=== PATIENT | male | born 1990 | race Caucasian/White ===

== ENCOUNTER 2024-02-16 09:11 | Inpatient (IN) | payer MEDICAID ==
[~2024-02-16] VITALS: Ht 175.3 cm; Wt 85.7 kg
[2024-02-16] MEDS: CEFTRIAXONE 1 G in IV D5W 50 ML IV ONE (09:35)
[2024-02-16] MEDS: IV NS 0.9% 1,000 ML BAG IV ONE (09:46)
[2024-02-16 09:47] LABS: BASOPHILS % (AUTO) 0.5 % (0.0-2.0); EOSINOPHILS # (AUTO) 0.3 K/uL (0.0-0.7); EOSINOPHILS % (AUTO) 3.1 % (0.0-6.0); HEMATOCRIT 39 % (39-51); HEMOGLOBIN 12.5 g/dL (13.5-17.5); LYMPHOCYTES # (AUTO) 1.6 K/uL (0.8-4.8); LYMPHOCYTES % (AUTO) 19.5 % (20.0-44.0); MEAN CORPUSCULAR HEMOGLOBIN 28 PG (26.0-33.0); MEAN CORPUSCULAR HGB CONC 33 g/dl (31.0-36.0); MEAN CORPUSCULAR VOLUME 86 fL (80-96); MONOCYTES # (AUTO) 0.8 K/uL (0.1-1.30); MONOCYTES % (AUTO) 9.4 % (2.0-12.0); NEUTROPHILS # (AUTO) 5.5 K/uL (1.8-8.9); NEUTROPHILS % (AUTO) 67.5 % (43.0-81.0); PLATELET COUNT (AUTO) 352 K/uL (150-450); RED BLOOD CELL COUNT(AUTO) 4.49 MIL/uL (4.5-6.0); RED CELL DISTRIBUTION WIDTH 14.3 % (11.5-15.0); WHITE BLOOD COUNT (AUTO) 8.2 K/uL (4.3-11.0)
[2024-02-16 09:59] LABS: INR 0.98 (0.91-1.10); PARTIAL THROMBOPLASTIN TIME 28.8 SEC (24.3-34.3); PROTHROMBIN TIME 10.4 SECS (9.2-11.1)
[2024-02-16 10:05] LABS: CALCIUM, SERUM 9.3 mg/dL (8.5-10.1); CARBON DIOXIDE 31 mmol/L (21-32); CHLORIDE 101 mmol/L (98-107); CREATININE 0.9 mg/dL (0.6-1.3); GLUCOSE 76 mg/dL (74-106); POTASSIUM 3.4 mmol/L (3.5-5.1); SODIUM SERUM 140 mmol/L (136-145); UREA NITROGEN, BLOOD 9 mg/dL (7-18)
[2024-02-16 10:10] LABS: LACTIC ACID 2.2 mmol/L (0.4-2.0)
[2024-02-16 10:13] LABS: NT-PRO BNP 16 pg/mL (0-125)
[2024-02-16 10:15] LABS: ALCOHOL, BLOOD < 3 mg/dL (0-10)
[2024-02-16 10:17] LABS: C-REACTIVE PROTEIN 2.05 mg/dL (0.0-0.30)
[2024-02-16 10:18] LABS: ALANINE AMINOTRANSFERASE 23 U/L (12-78); ALBUMIN 3.4 g/dL (3.4-5.0); ALKALINE PHOSPHATASE 92 U/L (46-116); ASPARTATE AMINOTRANSFERASE 16 U/L (15-37); BILIRUBIN,DIRECT 0.1 mg/dL (0.0-0.2); BILIRUBIN,TOTAL 0.6 mg/dL (0.2-1.0); TOTAL PROTEIN, SERUM 8.3 g/dL (6.4-8.2)
[2024-02-16] MEDS: VANCOMYCIN 1 GM in IV D5W 250 ML IV ONE (10:20)
[2024-02-16] MEDS ORDERED: ONDANSETRON HCL/PF 4 MG/2 ML VIAL IVP PRN (11:00)
[2024-02-16] MEDS ORDERED: MAG HYDROX/AL HYDROX/SIMETH 30 ML UDC PO PRN (11:00)
[2024-02-16] MEDS ORDERED: TEMAZEPAM 15 MG CAPSULE PO PRN (11:00)
[2024-02-16] MEDS ORDERED: Z GUARD REMEDY 4 OZ OINT TP PRN (11:00)
[2024-02-16] MEDS ORDERED: MAGNESIUM HYDROXIDE 30 ML UDC PO PRN (11:00)
[2024-02-16 12:00] VITALS: BP 122/72; TEMP 98.1; O2SAT 99
[2024-02-16 13:00] VITALS: BP 122/72; TEMP 98.1
[2024-02-16] MEDS: ENOXAPARIN SODIUM 40 MG/0.4 ML DISP.SYRIN SQ SCH (13:37)
[2024-02-16] MEDS: VANCOMYCIN 1 GM in IV D5W 250ml IV SCH (17:32)
[2024-02-16] MEDS: IV NS 0.9% 1,000 ML IV PRN (17:36)
[2024-02-16 18:00] VITALS: BP 121/77; TEMP 98.1; O2SAT 100
[2024-02-16 21:00] VITALS: BP 119/72; TEMP 98.2; O2SAT 100
[2024-02-17 05:00] VITALS: BP 119/72; TEMP 98.2; O2SAT 100
[2024-02-17 07:22] LABS: BASOPHILS % (AUTO) 0.7 % (0.0-2.0); EOSINOPHILS # (AUTO) 0.2 K/uL (0.0-0.7); EOSINOPHILS % (AUTO) 3.6 % (0.0-6.0); HEMATOCRIT 39 % (39-51); HEMOGLOBIN 12.3 g/dL (13.5-17.5); LYMPHOCYTES # (AUTO) 1.7 K/uL (0.8-4.8); LYMPHOCYTES % (AUTO) 27.7 % (20.0-44.0); MEAN CORPUSCULAR HEMOGLOBIN 28 PG (26.0-33.0); MEAN CORPUSCULAR HGB CONC 32 g/dl (31.0-36.0); MEAN CORPUSCULAR VOLUME 86 fL (80-96); MONOCYTES # (AUTO) 0.5 K/uL (0.1-1.30); MONOCYTES % (AUTO) 7.8 % (2.0-12.0); NEUTROPHILS # (AUTO) 3.7 K/uL (1.8-8.9); NEUTROPHILS % (AUTO) 60.2 % (43.0-81.0); PLATELET COUNT (AUTO) 267 K/uL (150-450); RED BLOOD CELL COUNT(AUTO) 4.48 MIL/uL (4.5-6.0); RED CELL DISTRIBUTION WIDTH 14.1 % (11.5-15.0); WHITE BLOOD COUNT (AUTO) 6.1 K/uL (4.3-11.0)
[2024-02-17] MEDS: PANTOPRAZOLE 40 MG TABLET.DR PO SCH (07:42)
[2024-02-17 08:00] VITALS: BP 126/65; TEMP 98.1; O2SAT 100
[2024-02-17 08:37] LABS: CALCIUM, SERUM 8.7 mg/dL (8.5-10.1); CREATININE 0.8 mg/dL (0.6-1.3); PHOSPHORUS 2.7 mg/dL (2.5-4.9); POTASSIUM 3.8 mmol/L (3.5-5.1)
[2024-02-17] MEDS ORDERED: CEFTRIAXONE 1 G in IV D5W 50 ML IV SCH (11:00)
[2024-02-17] MEDS: MICONAZOLE NITRATE 2% CREAM 1 EA TUBE TP SCH (11:33)
[2024-02-17] MEDS: CEFTRIAXONE 2 G in IV D5W 50 ML IV SCH (11:33)
[2024-02-17] MEDS ORDERED: CEFTRIAXONE 2 G in IV D5W 100 ML IV SCH (11:44)
[2024-02-17 16:00] VITALS: BP 144/93; TEMP 98.4; O2SAT 97
[2024-02-17 16:33] LABS: HIV-1 p24 ANTIGEN NON REACTIVE (NONREACTIVE); HIV-1/2 ANTIBODY NON REACTIVE (NONREACTIVE)
[2024-02-17] MEDS: THERAHONEY GEL 1.5 OZ TUBE TP SCH (17:14)
[2024-02-17 20:00] VITALS: BP 121/76; TEMP 98.2; O2SAT 100
[2024-02-18 04:00] VITALS: BP 109/69; TEMP 97.9; O2SAT 99
[2024-02-18 08:00] VITALS: BP 130/77; TEMP 98.4; O2SAT 97
[2024-02-18] MEDS ORDERED: CEFTRIAXONE 2 G in IV D5W 100 ML IV SCH (11:00)
[2024-02-18] MEDS: DOXYCYCLINE HYCLATE (100 MG) 100 MG TABLET PO SCH (11:05)
[2024-02-18 16:00] VITALS: BP 116/59; TEMP 98.4; O2SAT 93
[2024-02-18] MEDS: ACETAMINOPHEN 325 MG TABLET PO PRN (19:08)
[2024-02-18 20:00] VITALS: BP 127/70; TEMP 98.4; O2SAT 99
[2024-02-18] MEDS: HYDROCODONE/APAP 5/325MG TABLET PO PRN (20:47)
[2024-02-19 04:00] VITALS: BP 133/68; TEMP 98.4; O2SAT 99
[2024-02-19 08:00] VITALS: BP 119/57; TEMP 97.9; O2SAT 96
[2024-02-19] MEDS ORDERED: DOXY100C2 PO (09:50)
[2024-02-19 16:00] VITALS: BP 128/74; TEMP 98.1; O2SAT 99
== END 2024-02-19 17:58 | disposition home health service (06) | DRG 383 ==
LOC: ER 09:17 → MEDSG1 11:48 → GPS 13:40 → MEDSG1 15:21
PROVIDERS: ADMIT Nurse Practitioner Acute Care; ATTEND Nurse Practitioner Acute Care
DX: L03.115 Cellulitis of right lower limb (principal); E87.20 Acidosis, unspecified; L97.519 Non-pressure chronic ulcer of other part of right foot with unspecified severity; I73.9 Peripheral vascular disease, unspecified; Z59.00 Homelessness unspecified; L03.116 Cellulitis of left lower limb; I87.2 Venous insufficiency (chronic) (peripheral); M20.41 Other hammer toe(s) (acquired), right foot; Z88.0 Allergy status to penicillin; M21.41 Flat foot [pes planus] (acquired), right foot; I89.0 Lymphedema, not elsewhere classified; M79.662 Pain in left lower leg; M79.661 Pain in right lower leg; I80.8 Phlebitis and thrombophlebitis of other sites
CPT/HCPCS: 36415; 71045-TC; 73630-TC; 80048-TC; 80076-TC; 80202-TC; 83605-TC; 83735-TC; 83880; 84100-TC; 84443-TC; 84484-TC; 85025-TC; 85652-TC; 85730-TC; 86140-TC; 86803; 87040-TC; 87806; 93970-TC; 93971-TC; 98960; A4223; A6403; G0378; G0480; J0696; J1650; J3370; J7030; J7040; J7060